=== PATIENT | female | born 1980 | race American Indian/Alaskan Native ===

== ENCOUNTER 2017-08-25 08:30 | Day surgery (SDC) | payer OTHER ==
--- NOTE | 2017-08-25 09:29 | Anesthesia Consultation ---
Anesthesia Consult and Med Hx Date of service: 08/25/17 - Airway Anesthetic Teeth Evaluation: Good ROM Head & Neck: Adequate Mental/Hyoid Distance: Adequate Mallampati Class: Class II Intubation Access Assessment: Probably Good - Pulmonary Exam CTA: Yes - Cardiac Exam Cardiac Exam: RRR - Pre-Operative Health Status ASA Pre-Surgery Classification: ASA1 Proposed Anesthetic Plan: General - Pulmonary Hx Smoking: No Hx Sleep Apnea: No (NATHANIEL PRE SCREEN NEGATIVE) - Cardiovascular System Hx Hypertension: No - Central Nervous System Hx Back Pain: Yes (FROM STONE) - Gastrointestinal Hx Gastroesophageal Reflux Disease: Yes - Other Systems Hx Cancer: No Hx Obesity: No - Additional Comments Anesthesia Medical History Comments: Kidney Stones
[2017-08-25] MEDS ORDERED: VERSED IV NR (09:30)
[2017-08-25] MEDS ORDERED: PEPCID IV NR (09:30)
--- NOTE | 2017-08-25 09:30 | Anesthesia Day of Surgery ---
Anesthesia Day of Surgery - Day of Surgery Patient Examined: Yes Patient H&P Reviewed: Yes Patient is NPO: Yes
[2017-08-25] MEDS ORDERED: ANCEF/STERILE WATER 2 GM/20 ML IV NR (10:00)
[2017-08-25] MEDS ORDERED: NACL 0.9% 1000 ML 1,000 ML IV SCH (10:00)
[2017-08-25] MEDS ORDERED: XYLOCAINE MPF 2% ONE (10:54)
[2017-08-25] MEDS ORDERED: DIPRIVAN 10 MG/ML IV ONE (10:54)
[2017-08-25] MEDS ORDERED: ZOFRAN ONE (10:54)
[2017-08-25] MEDS ORDERED: SUBLIMAZE ONE (10:54)
[2017-08-25] MEDS ORDERED: WATER FOR IRRIG STERILE IR ONE ×2 (11:46)
--- NOTE | 2017-08-25 11:55 | Short Stay Summary ---
Short Stay Documentation Date of service: 08/25/17 - History H&P: obtained from office - Allergies and Medications Current Medications: Allergies No Known Allergies Allergy (Verified 08/18/17 14:10) Home Medications Medication Instructions Recorded Confirmed Last Taken Type Sulfamethoxazole/Trimethoprim 1 each PO BID 08/18/17 08/18/17 Unknown History [Bactrim DS TAB] Active Medications Cefazolin Sodium (Ancef/Sterile Water 2 Gm/20 Ml) 2 gm IV PREOP NR Stop: 08/25/17 21:00 Famotidine (Pepcid) 20 mg IV PREOP NR Stop: 08/25/17 12:00 Last Admin: 08/25/17 09:56 Dose: 20 mg Sodium Chloride (Nacl 0.9% 1000 Ml) 1,000 mls @ 75 mls/hr IV DIRECT GRIFFIN Last Admin: 08/25/17 09:55 Dose: 75 mls/hr Midazolam HCl (Versed) 2 mg IV PREOP NR Stop: 08/25/17 23:59 Last Admin: 08/25/17 10:29 Dose: 2 mg - Brief post op/procedure progress note Date of procedure: 08/25/17 Pre-op diagnosis: hematuria, left renal 6mm stone Post-op diagnosis: same Procedure: cysto, left eswl renal Anesthesia: GETA Findings: good vis, cysto neg Surgeon: CANDY ROBERTSON Estimated blood loss: none Pathology: none Condition: stable - Hospital course Hospital course: or pacu home - Disposition Condition at discharge: Good Disposition: DC-01 TO HOME OR SELFCARE Short Stay Discharge Plan Activity: advance as tolerated Diet: advance as tolerated Follow up with: CANDY ROBERTSON MD [Staff Physician] - 7 Days
[2017-08-25] MEDS ORDERED: NORCO 5/325 PO ONE (13:32)
[2017-08-25 16:43] VITALS: BP 98/59
--- NOTE | 2017-08-25 17:01 | Operative Report ---
PREOPERATIVE DIAGNOSES: 1. Hematuria. 2. Left renal stone. POSTOPERATIVE DIAGNOSES: 1. Hematuria. 2. Left renal stone. PROCEDURES: 1. Cystoscopy. 2. Left renal ESWL. SURGEON: Kaushik Henao M.D. ANESTHESIA: General. SPECIMENS: None. ESTIMATED BLOOD LOSS: Minimal. COMPLICATIONS: None. IMPLANTS: None. FINDINGS: Good visualization of the stone. Cystoscopy was negative with no tumors, lesions, or other abnormality. No visible hematuria and decreased density of the stone on the left side at the end of the procedure. DESCRIPTION OF PROCEDURE: The patient was transferred to OR suite in supine position, anesthesia, prepped and draped in our standard fashion, placed in the frog-leg. Flexible cystoscope passed. Prior to this, the bladder was drained with a 16-Kiswahili Hunt catheter. Flexible cystoscope passed and inspected the entire bladder, right and left ureteral orifices. There was no blood visible within the bladder. No tumors, lesions, erythema, or suspicious areas. At this point, the scope was withdrawn. The patient was placed in the supine position. At this point, the left renal stone was visualized with biplanar fluoroscopy and F2. 2500 shocks were delivered with intermittent repositioning done as necessary. At the end of the procedure, there was significant decreased density of the stone. Intermittent repositioning was done throughout the procedure to keep the stone targeted correctly. The patient was awakened and transferred to PACU in good and stable condition. JOB# [id number] ATS/NTS
--- NOTE | 2017-08-25 19:21 | Post Anesthesia Evaluation ---
- Post Anesthesia Evaluation Patient Participated: Yes Airway Patent: Yes Stable Respiratory Function: Yes Nausea/Vomiting: No Temp > 96.8F: Yes Pain Manageable: Yes Adequeate Hydration: Yes Anesthesia Complications: No Block Receding Appropriately: Not Applicable Patient on Ventilator: No
== END 2017-08-25 15:25 | disposition home or self-care (01) ==
LOC: OR 08:30
PROVIDERS: ATTEND Urology
DX: N20.0 Calculus of kidney (principal); R31.9 Hematuria, unspecified; K21.9 Gastro-esophageal reflux disease without esophagitis
CPT/HCPCS: 50590; 81025; A4217; J0690; J2250; J2405; J2704; J3010; J7030